=== PATIENT | male | born 2000 | race Caucasian/White ===

== ENCOUNTER 2021-05-28 14:20 | Emergency (ER) | payer OTHER ==
[~2021-05-28] VITALS: Ht 170.2 cm; Wt 92.5 kg
[2021-05-28 14:20] VITALS: BP 131/76
[2021-05-28] MEDS ORDERED: BACI500O21 TOP (14:52)
[2021-05-28] MEDS ORDERED: BACT800T5 PO (14:52)
== END 2021-05-28 15:14 | disposition home or self-care (01) ==
LOC: M ED 14:20
DX: L08.9 Local infection of the skin and subcutaneous tissue, unspecified (principal)
CPT/HCPCS: 96372; 99282; J0696